=== PATIENT | female | born 1960 | race Caucasian/White ===

== ENCOUNTER → 2018-07-24 | Outpatient (CLI) | payer OTHER | LOC: FIMAGING 12:23 | PROVIDERS: ATTEND Nurse Practitioner | DX: M50.921 Unspecified cervical disc disorder at C4-C5 level (principal); M50.923 Unspecified cervical disc disorder at C6-C7 level ==

== ENCOUNTER 2018-09-11 05:44 | Inpatient (IN) | payer OTHER ==
[2018-09-11] MEDS ORDERED: ACETAMINOPHEN 500 MG TAB PO ONE (05:51)
[2018-09-11] MEDS ORDERED: GABAPENTIN 300 MG CAP PO ONE (05:51)
[2018-09-11] MEDS ORDERED: LR 1,000 ML IV ONE (06:05)
[2018-09-11] MEDS ORDERED: CHLORHEXIDINE GLUC HIBICLENS 118 ML BTL TP ONE (06:26)
[2018-09-11] MEDS ORDERED: THROMBIN (BOVINE) 5,000 UNIT VIAL TP ONE (06:26)
[2018-09-11] MEDS ORDERED: BUPIVACAINE 0.25% 30 ML SDV ONE (06:26)
[2018-09-11] MEDS ORDERED: EPINEPHrine 1 MG/ML INJ ONE (06:26)
[2018-09-11] MEDS ORDERED: BACITRACIN 50,000 UNITS/10 ML SYR IRR ONE (06:27)
--- NOTE | 2018-09-11 06:58 | PDANEPAE ---
ANE Past Medical History - Cardiovascular History Hx Hypertension: Yes Hx Arrhythmias: No Hx Chest Pain: No Hx Coronary Artery / Peripheral Vascular Disease: Yes Hx CHF / Valvular Disease: No Hx Palpitations: No Cardiovascular History Comment: htn. hyperlipidemia. hx of left CEA - Pulmonary History Hx COPD: No Hx Asthma/Reactive Airway Disease: No Hx Recent Upper Respiratory Infection: No Hx Oxygen in Use at Home: No Hx Sleep Apnea: No Sleep Apnea Screening Result - Last Documented: Positive Pulmonary History Comment: mukul positive uses cpap- instructed pt to bring - Neurologic History Hx Cerebrovascular Accident: No Hx Seizures: No Hx Dementia: No Neurologic History Comment: left arm has occassional numbness and tingling - Endocrine History Hx Diabetes: No - Renal History Hx Renal Disorders: No - Liver History Hx Hepatic Disorders: No - Neurological & Psychiatric Hx Hx Neurological and Psychiatric Disorders: No - Cancer History Hx Cancer: No - Congenital Disorder History Hx Congenital Disorders: No - GI History Hx Gastrointestinal Disorders: Yes Gastrointestinal History Comment: struggles with constipation a lot - Other Health History Other Health History: wears glasses. possible eczema to right arm- pt states it is clearing - Chronic Pain History Chronic Pain: Yes (left shoulder pain) - Surgical History Prior Surgeries: cardiac stent x1. hysterectomy at 33 yo. carpal tunnel. left CEA ANE Review of Systems Review of Systems: - Exercise capacity METS (RN): 4 METS ANE Patient History - Allergies Allergies/Adverse Reactions: cephalexin [From Keflex] Allergy (Verified 07/21/18 12:28) Anaphylaxis - Home Medications Home Medications: Aspirin 81mg (*) 07/21/18 [Last Taken 09/03/18] Lipitor 40 mg (*) 07/21/18 [Last Taken 09/10/18] Losartan/Hydrochlorothiazide 07/21/18 [Last Taken 09/11/18] Metoprolol Succinate 07/21/18 [Last Taken 09/10/18] Sertraline HCl 07/21/18 [Last Taken 09/11/18] Vitamin D3 07/21/18 [Last Taken 09/01/18] traZODONE 50MG (*) 07/21/18 [Last Taken 09/10/18] - NPO status NPO Since - Liquids (Date): 09/11/18 NPO Since - Liquids (Time): 05:15 NPO Since - Solids (Date): 10/28/18 NPO Since - Solids (Time): 19:30 - Smoking Hx Smoking Status: Never smoked - Family Anes Hx Family Hx Anesthesia Complications: none ANE Labs/Vital Signs - Vital Signs Blood Pressure: 149/56 Heart Rate: 53 Respiratory Rate: 16 O2 Sat (%): 94 Height: 157.48 cm Weight: 72.575 kg ANE Physical Exam - Airway Neck exam: decreased ROM Mallampati Score: Class 2 Mouth exam: small mouth opening - ASA Status ASA Status: III ANE Anesthesia Plan Anesthesia Plan: general endotracheal anesthesia
[2018-09-11] MEDS ORDERED: VANCOMYCIN HCL/NORMAL SALINE 250 ML IV ONE (07:00)
[2018-09-11] MEDS ORDERED: MIDAZOLAM 2 MG/2 ML VIAL ONE (07:09)
[2018-09-11] MEDS ORDERED: fentaNYL 100 MCG/2 ML INJ ONE ×2 (07:10→10:19)
[2018-09-11] MEDS ORDERED: PROPOFOL/EMULSION 500 MG/50 ML BOTTLE IV ONE ×2 (07:10→09:35)
[2018-09-11] MEDS ORDERED: PROPOFOL 200 MG/20 ML VIAL ONE (07:11)
--- NOTE | 2018-09-11 07:13 | PDGENHP ---
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 Since then she has had increasing symptoms which she describes as left scapular pain that extends down her arm creating numbness and heaviness. She has a history of cardiac disease with stent placement. She has done several week of PT which was not beneficial. She underwent 3 injections which were initially effective but unfortunately did not last. She cannot take NSAIDs due to her cardiac history. She is scheduled for ACDF C5-6, C6-[address] Saldivar on 09/11/18 at [facility]. She has obtained cardiac clearance from Dr Varghese. History Information - Allergies/Home Medication List Allergies/Adverse Reactions: cephalexin [From Keflex] Allergy (Verified 07/21/18 12:28) Anaphylaxis Home Medications: Aspirin 81mg (*) 07/21/18 [Last Taken 09/03/18] Lipitor 40 mg (*) 07/21/18 [Last Taken 09/10/18] Losartan/Hydrochlorothiazide 07/21/18 [Last Taken 09/11/18] Metoprolol Succinate 07/21/18 [Last Taken 09/10/18] Sertraline HCl 07/21/18 [Last Taken 09/11/18] Vitamin D3 07/21/18 [Last Taken 09/01/18] traZODONE 50MG (*) 07/21/18 [Last Taken 09/10/18] I have personally reviewed and updated: family history, medical history, social history, surgical history Past Medical History: Cardiac disease - Past Medical History coronary artery disease - Surgical History Reports: no pertinent surgical hx - Family History Additional family history: Not relavant to current situation - Social History Smoking Status: Never smoked Review of Systems Review of Systems: ROS: 10pt was reviewed & negative except for what was stated in HPI & below Physical Exam Physical Exam: 5/5 BUE 5/5 BLE Porras negative Reflexes: 2+ BR, biceps, triceps Temp Pulse Resp BP Pulse Ox 36.6 C 53 L 16 149/56 H 94 09/11/18 06:21 09/11/18 06:58 09/11/18 06:58 09/11/18 06:58 09/11/18 06:58 Constitutional: no apparent distress Eyes: PERRL Cardiovascular: regular rate and rhythym Respiratory: no respiratory distress Skin: warm, normal color Musculoskeletal: full muscle strength Neurologic: AAOx3, sensation intact bilaterally Assessment & Plan Assessment: 58 yr old F with cervical stenosis and left upper extremity radicular pain Plan: Jena exhausted conservative treatment options and elected to proceed with ACDF C5-6, C6-7. She stopped her ASA 8 days ago which was her decision. MRI cervical spine from June 2018 in [facility] shows C5-6 moderate sized osteophyte with a focal left central protrusion, moderate to severe stenosis. C6 -7 moderate to severe bilateral foraminal stenosis. Jena has a history of cardiac disease and has obtained clearance from her diorama model maker. Her diorama model maker does not approve her her stopping ASA prior to surgery. She understands that Dr Saldivar will not do spinal surgery while on ASA. She elected to stop her ASA and proceed with surgery. She understands that she needs to speak with her diorama model maker regarding her cardiac risk for doing this. We will admit her to Med surg following surgery.
[2018-09-11] MEDS ORDERED: MAGNESIUM HYDROXIDE 30 ML UDCUP PO PRN (07:32)
[2018-09-11] MEDS ORDERED: diphenhydrAMINE 25 MG CAP PO PRN (07:32)
[2018-09-11] MEDS ORDERED: ONDANSETRON DISINTEGRATING 4 MG TAB PO PRN (07:32)
[2018-09-11] MEDS ORDERED: ONDANSETRON 4 MG/2 ML VIAL IVP PRN (07:32)
[2018-09-11] MEDS ORDERED: LACTULOSE 20 GM/30 ML UDCUP PO PRN (07:32)
[2018-09-11] MEDS ORDERED: POLYETHYLENE GLYCOL 3350 17 GM PKT PO PRN (07:32)
[2018-09-11] MEDS ORDERED: BISACODYL 10 MG SUPP PR PRN (07:32)
[2018-09-11] MEDS ORDERED: ROCURONIUM 50 MG/5 ML VIAL ONE (07:36)
[2018-09-11] MEDS ORDERED: ONDANSETRON 4 MG/2 ML VIAL ONE (07:36)
[2018-09-11] MEDS ORDERED: METOCLOPRAMIDE 10 MG/2 ML VIAL ONE (07:36)
[2018-09-11] MEDS ORDERED: NS 1,000 ML IV SCH (07:45)
[2018-09-11] MEDS ORDERED: PROMETHAZINE HCL 25 MG/ML INJ IVP PRN (10:10)
[2018-09-11] MEDS ORDERED: NALOXONE HCL 0.4 MG/ML INJ IVP PRN (10:10)
[2018-09-11] MEDS ORDERED: DEXAMETHASONE 4 MG/ML VIAL IVP PRN (10:10)
[2018-09-11] MEDS ORDERED: LR 500 ML IV PRN (10:10)
--- NOTE | 2018-09-11 10:11 | POSTANESTH ---
Post Anesthetic Evaluation Cardiovascular Status: Similar to Pre-Op Cond Respiratory Status: Normal, Stable Level of Consciousness/Mental Status: Can Participate in Eval Pain Control: Adequate, Prn Tx Ordered Nausea/Vomiting Control: Adequate, Prn Tx Ordered Complications Possibly Related to Anesthesia: None Noted
[2018-09-11] MEDS: fentaNYL 100 MCG/2 ML INJ IVP PRN ×2 (10:20→10:25)
--- NOTE | 2018-09-11 10:27 | POSTOPPROG ---
Post Op Note Date of Operation: 09/11/18 Surgeon: Elena Saldivar Manager Military: Nancy Blount NP Anesthesiologist: Naveen Anesthesia: GET(General Endotracheal) Pre-op Diagnosis: Cervical stenosis Procedure: ACDF C5-6, C6-7 Inf/Abcess present in the surg proc area at time of surgery?: No Depth: Deep Incisional (Fascial) EBL: Minimal Total fluids administered: see anesthesia Complications: none Date of Surgery: 09/11/18 Post Op Day: 0 Assessment/Plan: Assessment: 58 yr old F s/p ACDF C5-6, C6-7 for LUE symptoms/pain Plan: -Admit Med surg -PT/OT/ST eval and treat -Collar on at all times -Pain management -Post op xrays in am -Advance diet as tolerated Please call neurosurgery with questions/concerns Subjective: waking up in PACU Objective: Waking up in PACU PERRL No facial droop CHANG x4 5/5 BUE, BLE Collar in place Dressing CDI Appropriate Neuro Check Frequency Ordered: Yes
[2018-09-11] MEDS ORDERED: HYDROmorphONE/DILAUDID 2 MG/ML INJ ONE (10:28)
[2018-09-11] MEDS: HYDROmorphONE/DILAUDID 2 MG/ML INJ IVP PRN ×2 (10:37→10:52)
--- NOTE | 2018-09-11 11:09 | GOP ---
DATE OF OPERATION: 09/11/2018 SURGEON: Karlie Saldivar MD NEUROSURGEON: Karlie Saldivar MD INSTRUCTIONAL DESIGN SPECIALIST: Nancy Blount, nurse practitioner PREOPERATIVE DIAGNOSIS: Cervical radiculopathy. POSTOPERATIVE DIAGNOSIS: Cervical radiculopathy. PROCEDURE PERFORMED: Anterior cervical diskectomy with fusion and decompression at C5-6, C6-7. Ante rior cervical instrumentation C5, C6, C7. Placement of biomechanical intervertebral device C5-6, C6- 7. Same incision bone graft harvest. Microscope ([id number], [id number], [id number], [id number] x2, [id number], [id number]). FINDINGS: Were consistent with diagnosis. SPECIMENS: None. ESTIMATED BLOOD LOSS: 25 cc. INDICATIONS: The patient is a middle-aged female with terrible pain radiating down the left arm. Radha valdes also had a history of cardiac stents and was on anti-platelet therapy for these. She failed conser vative measures and she wanted to have surgery to fix the pain radiating into the left arm. The risk s of esophageal injury, carotid injury, recurrent laryngeal nerve injury, major vascular injury, hoar seness, dysphagia, nerve injury in the neck, pseudoarthrosis, adjacent segment disease, the possible failure of the surgery to alleviate her symptoms, spinal fluid leak, and pseudoarthrosis were all dis cussed. She knew that she may require additional surgery in the future at adjacent segments, even af ter successful surgery at this level. She wanted to proceed despite all these risks. DESCRIPTION OF PROCEDURE: Patient was taken to the operating room, placed in supine position. Gener al anesthesia was begun. A midline shoulder roll was placed. Her neck was kept neutral. Her occipu t gently extended. Her neck was sterilely prepped and draped in usual fashion. I made a transverse incision on the right side of the neck. The subcutaneous tissue was dissected us ing Bovie cautery down to the platysma. We used a combination of sharp and blunt dissection medial t o the sternocleidomastoid and lateral to the strap muscles down to the prevertebral space. A localiz ing x-ray was taken. We dissected the longus colli muscles off the spine at C5-6, C6-7, placed a self-retaining retractor, removed the ventral osteophytes at C5-6, C6-7. We harvested these for autologous grafting purposes. We placed a distraction pin at C5-6, shot an x-ray confirmed the location, and then under the micro scope, completely removed the disk and the cartilaginous endplates at C5-6. We drilled and harvested subchondral bone for autologous grafting purposes, then opened the PLL and decompressed the thecal s ac and the neural foramen bilaterally. There was a soft disk fragment on the left side at C5-6, and we got a dry great decompression of the C6 nerve root. We then chose a 7 mm anatomic PTC cage and pa cked it with autologous harvested bone dust. We then inserted at C5-6 and a nice fit was obtained. We moved our pins to the C6-7 level, distracted at C6-7 and did likewise removing the disk and the ca rtilaginous endplates. We drilled and harvested subchondral bone for autologous grafting purposes. We opened the posterior and longitudinal ligament and under the microscope, decompressed the thecal s ac and the neural foramen bilaterally. In this case, the left neural foramen was very tight due to b oney osteophyte hypertrophy of the uncinate process and we decompressed the C7 nerve root very widely way out into the foramen just beyond the pedicle of C7. We got a great decompression. We then chos e a 7 mm x 14 x 11 mm anatomic PTC cage manufactured by [employer]. It was packed with bone autograft and inserted it at C6-7. A great fit was obtained. We removed our distraction pins. We placed Gelfoam bullets in the holes that remained. We then fini shed preparation of the ventral surface of the vertebral bodies for the plate. We took a 39 mm plate . We increased its lordosis. We placed a 13 mm screw at C5, 6 and 7 and shot an x-ray. It was in e xcellent position. We placed the 3 remaining screws. They too were in excellent position. We then locked all of the screws according to company specification and verified this with people in the room . We then achieved meticulous hemostasis and then placed about 5 cc of 0.25% Marcaine with epinephrine in the prevertebral space. We then closed the incision in multiple layers using Vicryl sutures. Diony ri-Strips were applied to skin. The patient was reversed from anesthesia, extubated, and transferred to recovery room in stable condition. There were no complications. COMPLICATIONS: None. INSTRUMENTATION USED: Sensorlytronic 39 mm Zevo plate with 3.5 x 13 mm screws. We used a 7 x 14 x 11 kyrie tomic PTC cage at 5-6, 6-7. /[id number]/MODL
--- NOTE | 2018-09-11 11:45 | PDMN ---
Medical Necessity Medical necessity: AUTH #[id number] VALID 09/11 - 09/12. DONE IN PT. MCG : S320 anterior fusion. C5/6,C6/7 discectomy with fusion and decompression , anterior instrumentation C5,C6,C7 placement of C5-6,C6-7.
[2018-09-11] MEDS: FAMOTIDINE 20 MG TAB PO SCH ×2 (12:06→21:38)
[2018-09-11] MEDS: oxyCODONE IR 5 MG TAB PO PRN ×3 (12:06→21:38)
[2018-09-11] MEDS: METHOCARBAMOL 750 MG TAB PO PRN ×2 (12:06→17:20)
[2018-09-11] MEDS: SENNOSIDES/DOCUSATE SODIUM TAB PO SCH ×2 (12:14→21:35)
[2018-09-11] MEDS: ACETAMINOPHEN 500 MG TAB PO SCH ×2 (15:18→21:38)
[2018-09-11] MEDS: GABAPENTIN 300 MG CAP PO SCH ×2 (15:19→21:35)
[2018-09-11] MEDS ORDERED: VANCOMYCIN 750 MG in D5W 150 ML IV ONE (18:30)
[2018-09-11] MEDS ORDERED: ATORVASTATIN CALCIUM 40 MG TAB PO SCH (21:00)
[2018-09-11] MEDS ORDERED: METOPROLOL SUCCINATE XR 50 MG TAB PO SCH (21:00)
[2018-09-12] MEDS: METHOCARBAMOL 750 MG TAB PO PRN ×2 (03:35→13:54)
[2018-09-12 04:55] LABS: PLATELET COUNT 137 10^3/uL (150-400)
[2018-09-12] MEDS ORDERED: PNEUMOCOCCAL 0.5ML VACCINE VIAL IM ONE (06:24)
[2018-09-12] MEDS: GABAPENTIN 300 MG CAP PO SCH ×2 (06:31→13:55)
[2018-09-12] MEDS: ACETAMINOPHEN 500 MG TAB PO SCH ×2 (06:31→13:54)
[2018-09-12] MEDS: oxyCODONE IR 5 MG TAB PO PRN ×2 (06:34→13:54)
--- NOTE | 2018-09-12 08:03 | NEUSURGPN ---
Assessment/Plan: Assessment: 58 yr old F s/p ACDF C5-6, C6-7 for LUE symptoms/pain, POD#1. Pre op pain improved. Plan: -PT/OT/ST eval and treat -Collar on at all times -Pain management -Post op xrays in am -Advance diet as tolerated -TEDs, SCDs, lovenox POD#3 -D/w Dr Saldivar -Dispo: possibly home later today if doing well Please call neurosurgery with questions/concerns Subjective: Pt resting in bed, c/o difficulty swallowing and anterior/posterior neck pain Objective: AAOx3 NAD VSS MAEx4 Motor 5/5 BUE C collar on Incision dressed cdi +LT Urinary Catheter in Place: No - Physician Discussed Patient with : Yariel Neurosurgery Physical Exam - Vitals, I&O, Labs I and O 09/11/18 09/12/18 09/13/18 05:59 05:59 05:59 Intake Total 2680 Output Total 25 Balance 2655 Weight 72.575 kg Intake: Oral (ml) 1480 IV Intake (ml) 1200 Output: Estimated Blood Loss (ml) 25 Other: Number of Voids Toilet 1 Vital Signs Temp Pulse Resp BP Pulse Ox 36.8 C 57 L 15 140/56 H 89 L 09/12/18 07:59 09/12/18 07:59 09/12/18 07:59 09/12/18 07:59 09/12/18 07:59 Laboratory Results 09/12/18 04:23 09/12/18 04:23 ICD10 Worksheet Patient Problems: Problems Problem Status Onset Cervical radicular pain Acute - ICD10 Problem Qualifiers (1) Cervical radicular pain
[2018-09-12] MEDS ORDERED: LOSARTAN/HCTZ 50/12.5 1 TAB PO SCH (09:00)
[2018-09-12] MEDS ORDERED: SERTRALINE HCL 100 MG TAB PO SCH (09:00)
[2018-09-12] MEDS: FAMOTIDINE 20 MG TAB PO SCH (09:52)
[2018-09-12] MEDS: SENNOSIDES/DOCUSATE SODIUM TAB PO SCH (09:53)
[2018-09-12 11:24] VITALS: BP 153/84
--- NOTE | 2018-09-12 13:45 | ASMTLACE ---
LACE Length of stay for Answers: 2 days current admission Acuity / Level of Answers: Yes Care: Did the patient have an inpatient admission? Comorbidities - select Answers: Coronary Artery Disease all that apply Opioid dependence / Chronic pain Other Notes: HTN; HLD # of Emergency department Answers: 0 visits in the last 6 months Score: 12 Date Signed: 09/12/2018 01:44 PM Electronically Signed By:PRITI Cash
--- NOTE | 2018-09-12 13:47 | ASMTCMCOM ---
CM Note CM Note Notes: Pt had planned surgery for cervical stenosis. Pt resides with significant other. OT/PT/LINEN ATTENDANT clear pt for home. Pt medically stable for dc/c, no CM d/c needs identified. Date Signed: 09/12/2018 01:47 PM Electronically Signed By:PRITI Cash
[2018-09-14] MEDS ORDERED: ENOXAPARIN 40 MG/0.4 ML SYR SC SCH (09:00)
== END 2018-09-12 14:30 | disposition home or self-care (01) | DRG 30 ==
LOC: F3N 05:44
PROVIDERS: ADMIT Neurological Surgery; ATTEND Neurological Surgery
DX: M54.12 Radiculopathy, cervical region (principal); M48.02 Spinal stenosis, cervical region; I25.10 Atherosclerotic heart disease of native coronary artery without angina pectoris; Z95.5 Presence of coronary angioplasty implant and graft
CPT/HCPCS: 92610-GN; 97116-GP; 97161-GP; 97166-GO; C1713; G0009; J0171; J1170; J2250; J2405; J2704; J2765; J3010; J3370

== ENCOUNTER 2018-09-15 16:22 | Inpatient (IN) | payer OTHER ==
--- NOTE | 2018-09-15 17:21 | EDPHY ---
H & P Stated Complaint: Cervical fusion 4 days ago c/o sore throat and increasing neck pain Time Seen by Provider: 09/15/18 17:21 HPI/ROS: CHIEF COMPLAINT: Neck swelling, pain swelling HISTORY OF PRESENT ILLNESS: The patient is a 58-year-old female who is 4 days out from anterior cervical fusion with Dr. Saldivar. She is wearing a cervical collar. She has had increased swelling and pain in her neck with difficulty swallowing. No difficulty breathing. She was seen in their office today by the physician business assistant who is concerned for hematoma and sent her here to the ER for an MRI. The this was several hours ago. No fevers. No vomiting. Severity: Moderate Modifying factors: None REVIEW OF SYSTEMS: Constitutional: denies: chills, fever, recent illness, recent injury EENTM: denies: blurred vision, double vision, nose congestion Respiratory: denies: cough, shortness of breath Cardiac: denies: chest pain, irregular heart rate, lightheadedness, palpitations Gastrointestinal/Abdominal: denies: abdominal pain, diarrhea, nausea, vomiting, blood streaked stools Genitourinary: denies: dysuria, frequency, hematuria, pain Musculoskeletal: denies: joint pain, muscle pain Skin: denies: lesions, rash, jaundice, bruising Neurological: denies: headache, numbness, paresthesia, tingling, dizziness, weakness Hematologic/Lymphatic: denies: blood clots, easy bleeding, easy bruising Immunologic/allergic: denies: HIV/AIDS, transplant 10 systems reviewed and negative except as noted EXAM: GENERAL: Well-appearing, well-nourished and in no acute distress. HEAD: Atraumatic, normocephalic. EYES: Pupils equal round and reactive to light, extraocular movements intact, sclera anicteric, conjunctiva are normal. ENT: TMs normal, nares patent, oropharynx clear without exudates. Moist mucous membranes. NECK: Cervical collar in place, mild swelling, firm, the no drooling. No difficulty breathing. LUNGS: Breath sounds clear to auscultation bilaterally and equal. No wheezes rales or rhonchi. HEART: Regular rate and rhythm without murmurs, rubs or gallops. ABDOMEN: Soft, nontender, normoactive bowel sounds. No guarding, no rebound. No masses appreciated. BACK: No CVA tenderness, no spinal tenderness, step-offs or deformities EXTREMITIES: Normal range of motion, no pitting or edema. No clubbing or cyanosis. NEUROLOGICAL: Cranial nerves II through XII grossly intact. Normal speech, normal gait. 5/5 strength, normal movement in all extremities, normal sensation , normal reflexes PSYCH: Normal mood, normal affect. SKIN: Warm, dry, normal turgor, no visible rashes or lesions. Source: Patient Exam Limitations: No limitations - Personal History Current Tetanus Diphtheria and Acellular Pertussis (TDAP): Unsure - Medical/Surgical History Hx Asthma: No Hx Chronic Respiratory Disease: No Hx Diabetes: No Hx Cardiac Disease: Yes Hx Renal Disease: No Hx Cirrhosis: No Hx Alcoholism: No Hx HIV/AIDS: No Hx Splenectomy or Spleen Trauma: No Other PMH: cardiac stent, left endarectomy, cervical fusion - Family History Significant Family History: No pertinent family hx - Social History Smoking Status: Never smoked Alcohol Use: Sober Drug Use: None Constitutional: Initial Vital Signs Temperature (C) 36.8 C 09/15/18 16:31 Heart Rate 68 09/15/18 16:31 Respiratory Rate 16 09/15/18 16:31 Blood Pressure 187/80 H 09/15/18 16:31 O2 Sat (%) 96 09/15/18 16:31 O2 Delivery Mode Room Air Allergies/Adverse Reactions: cephalexin [From Keflex] Allergy (Verified 07/21/18 12:28) Anaphylaxis Home Medications: Medication Instructions Recorded Atorvastatin Calcium [Lipitor 40 40 mg PO HS 07/21/18 mg (*)] Losartan/Hydrochlorothiazide 1 each PO DAILY 07/21/18 [Losartan-Hctz 100-25 mg Tab] Metoprolol Succinate Xr [Toprol Xl 50 mg PO HS 07/21/18 50 mg (*)] Sertraline HCl [Zoloft 100mg (*)] 100 mg PO DAILY 07/21/18 traZODone [traZODONE 50MG (*)] 50 mg PO HS 07/21/18 Methocarbamol [Robaxin 750 mg (*)] 750 mg PO QID PRN #60 tab 09/12/18 oxyCODONE IR [Oxycodone Ir (*)] 5 - 10 mg PO Q4HRS PRN #60 tab 09/12/18 Acetaminophen [Tylenol ES 500 mg 1,000 mg PO TID PRN 09/15/18 (*)] Medical Decision Making ED Course/Re-evaluation: 5:[address] Gerard and is here and is evaluating the patient. 5:[address] Gerard is planning to take to the OR without the imaging. Differential Diagnosis: Partial list of the Differential diagnosis considered include but were not limited to; hematoma, infection and although unlikely based on the history and physical exam, I also considered perforation, ischemia. - Data Points Medications Given: Diphenhydramine HCl (Benadryl Injection) 50 mg IVP Q6 PRN PRN Reason: ALLERGIC REACTION Stop: 03/15/19 14:31 Last Admin: 09/16/18 14:41 Dose: 50 mg Famotidine (Pepcid) 20 mg PO BID INNA Stop: 03/15/19 08:59 Last Admin: 09/16/18 09:35 Dose: 20 mg HCTZ/Losartan Potassium (Hyzaar 50/12.5) 2 tab PO DAILY INNA Stop: 03/15/19 09:29 Last Admin: 09/16/18 09:36 Dose: 2 tab Hydralazine HCl (Apresoline) 10 - 20 mg IVP Q4 PRN PRN Reason: SBP >160 Stop: 03/15/19 12:23 Last Admin: 09/16/18 12:38 Dose: 10 mg Sodium Chloride (Ns) 1,000 mls @ 75 mls/hr IV CONT INNA Stop: 03/14/19 19:14 Last Admin: 09/16/18 01:10 Dose: 1,000 mls Methocarbamol (Robaxin) 750 mg PO QID PRN PRN Reason: Spasms Stop: 03/14/19 23:15 Last Admin: 09/16/18 00:18 Dose: 750 mg Morphine Sulfate (Morphine) 1 - 2 mg IVP Q1HR PRN PRN Reason: Pain, Severe Unable to Take PO Stop: 09/25/18 19:00 Last Admin: 09/15/18 19:32 Dose: 2 mg Ondansetron HCl (Zofran) 4 mg IVP Q4HRS PRN PRN Reason: Nausea/Vomiting, Can't Take PO Stop: 03/14/19 19:00 Last Admin: 09/15/18 19:32 Dose: 4 mg Oxycodone HCl (Oxycodone Ir) 5 - 10 mg PO Q3HRS PRN PRN Reason: Pain, Severe Able to Take PO Stop: 09/25/18 19:00 Last Admin: 09/16/18 09:35 Dose: 10 mg Sertraline HCl (Zoloft) 100 mg PO DAILY INNA Stop: 03/15/19 10:29 Last Admin: 09/16/18 11:33 Dose: 100 mg Discontinued Medications Bacitracin (Bacitracin Syringe) Confirm Administered Dose 100,000 units IRR .STK -MED ONE Stop: 09/15/18 21:50 Last Admin: 09/15/18 23:00 Dose: 100,000 units Bupivacaine HCl (Sensorcaine 0.25% Sdv) Confirm Administered Dose 30 ml .ROUTE .STK-MED ONE Stop: 09/15/18 21:44 Last Admin: 09/15/18 23:00 Dose: 30 ml Chlorhexidine Gluconate (Hibiclens) Confirm Administered Dose 1 btl TP .STK-MED ONE Stop: 09/15/18 21:43 Last Admin: 09/16/18 01:03 Dose: Not Given Dexamethasone (Decadron Injection) 10 mg IVP EDNOW ONE Stop: 09/15/18 17:40 Last Admin: 09/15/18 17:55 Dose: 10 mg Epinephrine HCl (Epinephrine) Confirm Administered Dose 1 mg .ROUTE .STK-MED ONE Stop: 09/15/18 21:44 Last Admin: 09/15/18 23:02 Dose: 0.15 mg Lactated Ringer's (Lr) 1,000 mls @ 0 mls/hr IV ONCE ONE PRN Reason: KVO Stop: 09/15/18 21:36 Last Admin: 09/16/18 01:03 Dose: Not Given Clindamycin Phosphate/Dextrose (Cleocin 900 Mg (Premix)) 50 mls @ 100 mls/hr IV ONCE ONE Stop: 09/15/18 22:44 Last Admin: 09/15/18 22:03 Dose: 50 mls Clindamycin Phosphate/Dextrose (Cleocin 600 Mg (Premix)) 50 mls @ 100 mls/hr IV Q8HRS INNA PRN Reason: Protocol Stop: 09/16/18 14:29 Last Admin: 09/16/18 06:08 Dose: 50 mls Midazolam HCl (Versed) 2 mg IVP ONCALL ONE Stop: 09/15/18 22:24 Last Admin: 09/15/18 22:20 Dose: 2 mg Thrombin (Thrombin-Jmi) Confirm Administered Dose 5,000 unit TP .STK-MED ONE Stop: 09/15/18 21:44 Last Admin: 09/15/18 23:03 Dose: 5,000 unit Departure - Departure Disposition: To OP Cath/Surgery Clinical Impression: Postoperative hematoma neck Condition: Fair
[2018-09-15] MEDS ORDERED: DEXAMETHASONE 10 MG/ML VIAL IVP ONE (17:39)
[2018-09-15] MEDS ORDERED: DEXAMETHASONE 4 MG/ML VIAL ONE ×2 (17:52→22:12)
[2018-09-15 18:00] LABS: PLATELET COUNT 232 10^3/uL (150-400)
[2018-09-15 18:09] LABS: INR 1.03 (0.83-1.16); PROTIME(PATIENT) 13.7 SEC (12.0-15.0)
[2018-09-15] MEDS ORDERED: HYDROCODONE/APAP 5/325 TAB PO PRN ×2 (19:01→22:50)
[2018-09-15] MEDS ORDERED: ONDANSETRON DISINTEGRATING 4 MG TAB PO PRN (19:01)
[2018-09-15] MEDS ORDERED: ACETAMINOPHEN 325 MG TAB PO PRN (19:01)
[2018-09-15] MEDS ORDERED: ONDANSETRON 4 MG/2 ML VIAL IVP PRN ×2 (19:01→22:50)
[2018-09-15] MEDS ORDERED: NS 1,000 ML IV SCH (19:15)
[2018-09-15] MEDS ORDERED: LR 1,000 ML IV ONE (21:35)
[2018-09-15] MEDS ORDERED: CHLORHEXIDINE GLUC HIBICLENS 118 ML BTL TP ONE (21:42)
[2018-09-15] MEDS ORDERED: EPINEPHrine 1 MG/ML INJ ONE (21:43)
[2018-09-15] MEDS ORDERED: THROMBIN (BOVINE) 5,000 UNIT VIAL TP ONE (21:43)
[2018-09-15] MEDS ORDERED: BUPIVACAINE 0.25% 30 ML SDV ONE (21:43)
[2018-09-15] MEDS ORDERED: BACITRACIN 50,000 UNITS/10 ML SYR IRR ONE (21:49)
[2018-09-15] MEDS ORDERED: CLINDAMYCIN 600 MG/DEXTROSE 50 ML IV ONE (21:51)
[2018-09-15] MEDS ORDERED: CLINDAMYCIN 900 MG/DEXTROSE/50 ML BAG IV ONE (22:00)
[2018-09-15] MEDS ORDERED: ROCURONIUM 50 MG/5 ML VIAL ONE (22:11)
[2018-09-15] MEDS ORDERED: LIDOCAINE 2% 2 ML INJ ONE ×2 (22:12)
[2018-09-15] MEDS ORDERED: ONDANSETRON 4 MG/2 ML VIAL ONE (22:12)
[2018-09-15] MEDS ORDERED: SUCCINYLCHOLINE CHLORIDE 200 MG/10 ML SYR IVP ONE (22:12)
[2018-09-15] MEDS ORDERED: PROPOFOL 200 MG/20 ML VIAL ONE (22:12)
[2018-09-15] MEDS ORDERED: SUGAMMADEX SODIUM 200 MG/2 ML VIAL IVP ONE (22:12)
[2018-09-15] MEDS ORDERED: fentaNYL 100 MCG/2 ML INJ ONE ×2 (22:12)
[2018-09-15] MEDS ORDERED: CLINDAMYCIN 900 MG/DEXTROSE 50 ML IV ONE (22:15)
[2018-09-15] MEDS ORDERED: MIDAZOLAM 2 MG/2 ML VIAL ONE (22:19)
[2018-09-15] MEDS ORDERED: MIDAZOLAM 2 MG/2 ML VIAL IVP ONE (22:23)
--- NOTE | 2018-09-15 22:24 | PDANEPAE ---
ANE History of Present Illness s/p ACDF POD 4 with neck hematoma ANE Past Medical History - Cardiovascular History Hx Hypertension: Yes Hx Arrhythmias: No Hx Chest Pain: No Hx Coronary Artery / Peripheral Vascular Disease: Yes Hx CHF / Valvular Disease: No Hx Palpitations: No Cardiovascular History Comment: htn. hyperlipidemia. hx of left CEA - Pulmonary History Hx COPD: No Hx Asthma/Reactive Airway Disease: No Hx Recent Upper Respiratory Infection: No Hx Oxygen in Use at Home: No Hx Sleep Apnea: No Pulmonary History Comment: mukul positive uses cpap- instructed pt to bring - Neurologic History Hx Cerebrovascular Accident: No Hx Seizures: No Hx Dementia: No Neurologic History Comment: left arm has occassional numbness and tingling - Endocrine History Hx Diabetes: No - Renal History Hx Renal Disorders: No - Liver History Hx Hepatic Disorders: No - Neurological & Psychiatric Hx Hx Neurological and Psychiatric Disorders: No - Cancer History Hx Cancer: No - Congenital Disorder History Hx Congenital Disorders: No - GI History Hx Gastrointestinal Disorders: Yes Gastrointestinal History Comment: struggles with constipation a lot - Other Health History Other Health History: wears glasses. possible eczema to right arm- pt states it is clearing - Chronic Pain History Chronic Pain: Yes (left shoulder pain) - Surgical History Prior Surgeries: cardiac stent x1. hysterectomy at 33 yo. carpal tunnel. left CEA ANE Review of Systems Review of Systems: - Exercise capacity Exercise capacity: >=4 METS ANE Patient History - Allergies Allergies/Adverse Reactions: cephalexin [From Keflex] Allergy (Verified 07/21/18 12:28) Anaphylaxis - Home Medications Home Medications: Atorvastatin Calcium [Lipitor 40 mg (*)] 40 mg PO HS 07/21/18 [Last Taken ] Losartan/Hydrochlorothiazide [Losartan-Hctz 100-25 mg Tab] 1 each PO DAILY 07/21 [Last Taken 09/14/18] Metoprolol Succinate Xr [Toprol Xl 50 mg (*)] 50 mg PO HS 07/21/18 [Last Taken 09/14/18] Sertraline HCl [Zoloft 100mg (*)] 100 mg PO DAILY 07/21/18 [Last Taken 09/14/18] traZODone [traZODONE 50MG (*)] 50 mg PO HS 07/21/18 [Last Taken 09/14/18] Acetaminophen [Tylenol ES 500 mg (*)] 1,000 mg PO TID PRN 09/15/18 [Last Taken 09/15/18] - NPO status NPO Since - Liquids (Date): 09/15/18 NPO Since - Liquids (Time): 11:00 NPO Since - Solids (Date): 09/15/18 NPO Since - Solids (Time): 11:00 - Smoking Hx Smoking Status: Never smoked - Alcohol Use Alcohol Use: Sober - Family Anes Hx Family Hx Anesthesia Complications: none ANE Labs/Vital Signs - Labs Result Diagrams: 09/15/18 17:45 09/15/18 17:45 - Vital Signs Blood Pressure: 183/108 Heart Rate: 74 Respiratory Rate: 16 O2 Sat (%): 95 Height: 157.48 cm Weight: 72.575 kg ANE Physical Exam - Airway Neck exam: spinal fusion, C-collar in place Mallampati Score: Class 2 Mouth exam: normal dental/mouth exam - Pulmonary Pulmonary: no respiratory distress - Cardiovascular Cardiovascular: regular rate and rhythym - ASA Status ASA Status: III ANE Anesthesia Plan Anesthesia Plan: general endotracheal anesthesia Specialized Airway: video laryngoscope
[2018-09-15] MEDS ORDERED: ACETAMINOPHEN 500 MG TAB PO PRN (22:50)
[2018-09-15] MEDS ORDERED: PROMETHAZINE HCL 25 MG/ML INJ IVP PRN (22:50)
[2018-09-15] MEDS ORDERED: oxyCODONE IR 5 MG TAB PO PRN (22:50)
[2018-09-15] MEDS ORDERED: NALOXONE HCL 0.4 MG/ML INJ IVP PRN (22:50)
[2018-09-15] MEDS ORDERED: fentaNYL 100 MCG/2 ML INJ IVP PRN (22:50)
[2018-09-15] MEDS ORDERED: ALBUTEROL 3 ML DEYVIAL IH PRN (22:50)
[2018-09-15] MEDS ORDERED: LR 500 ML IV PRN (22:50)
[2018-09-15] MEDS ORDERED: HYDROmorphONE/DILAUDID 2 MG/ML INJ IVP PRN (22:50)
--- NOTE | 2018-09-15 22:50 | POSTANESTH ---
Post Anesthetic Evaluation Cardiovascular Status: Normal, Stable Respiratory Status: Normal, Stable Level of Consciousness/Mental Status: Can Participate in Eval, Alert and Oriented Pain Control: Adequate, Prn Tx Ordered Nausea/Vomiting Control: Adequate, Prn Tx Ordered Complications Possibly Related to Anesthesia: None Noted
[2018-09-15] MEDS ORDERED: BISACODYL 10 MG SUPP PR PRN (23:16)
[2018-09-15] MEDS ORDERED: MAGNESIUM HYDROXIDE 30 ML UDCUP PO PRN (23:16)
[2018-09-15] MEDS ORDERED: POLYETHYLENE GLYCOL 3350 17 GM PKT PO PRN (23:16)
[2018-09-15] MEDS ORDERED: LACTULOSE 20 GM/30 ML UDCUP PO PRN (23:16)
--- NOTE | 2018-09-15 23:20 | SOAPPROG ---
SOAP Progress Note Assessment/Plan: Assessment: 58 yo F sp washout of post op hematoma Plan: stable to 3N PAKO x 1 hardcollar at all times please call with neuro changes 09/15/18 23:18 Subjective: + neck pain, no arm pain Objective: Vital Signs Temp Pulse Resp BP Pulse Ox 36.2 C 74 16 183/108 H 95 09/15/18 23:10 09/15/18 23:10 09/15/18 23:10 09/15/18 23:10 09/15/18 23:10 Laboratory Results 09/15/18 17:45 09/15/18 17:45 PT 13.7 SEC (12.0-15.0) 09/15/18 17:45 INR 1.03 (0.83-1.16) 09/15/18 17:45 somnolent PERRL, no facial droop MIKAELA x 4 + light touch ICD10 Worksheet Patient Problems: Problems Problem Status Onset Cervical radicular pain Acute
[2018-09-16] MEDS ORDERED: METHOCARBAMOL 750 MG TAB ONE (00:15)
[2018-09-16] MEDS: METHOCARBAMOL 750 MG TAB PO PRN (00:18)
[2018-09-16] MEDS: oxyCODONE IR 5 MG TAB PO PRN ×4 (01:10→18:36)
[2018-09-16 05:14] LABS: PLATELET COUNT 230 10^3/uL (150-400)
[2018-09-16] MEDS: CLINDAMYCIN 600 MG/DEXTROSE 50 ML IV SCH ×2 (06:08→15:33)
--- NOTE | 2018-09-16 08:48 | SOAPPROG ---
SOAP Progress Note Assessment/Plan: Assessment: 58 yo F POD #1 washout of post op hematoma after C5-7 ACDF Plan: Neuro: stable and doing well overall PT/OT tolerating regular diet PAKO x 1 hardcollar at all times please call with neuro changes 09/15/18 23:18 09/16/18 08:46 Subjective: neck swelling better, no arm pain, no weakness. swallowing better Objective: Vital Signs Temp Pulse Resp BP Pulse Ox 36.6 C 82 16 179/88 H 93 09/16/18 07:51 09/16/18 07:51 09/16/18 07:51 09/16/18 07:51 09/16/18 07:51 Laboratory Results 09/16/18 04:17 09/16/18 04:17 09/15/18 09/16/18 09/17/18 05:59 05:59 04:59 Intake Total 850 Output Total 310 Balance 540 PT 13.7 SEC (12.0-15.0) 09/15/18 17:45 INR 1.03 (0.83-1.16) 09/15/18 17:45 AAOX4, +FC PERRL, EOMI, no facial droop 5/5 + light touch C/D/I ICD10 Worksheet Patient Problems: Problems Problem Status Onset Cervical radicular pain Acute
--- NOTE | 2018-09-16 09:19 | GOP ---
DATE OF OPERATION: 09/15/2018 SURGEON: Hao Ardon MD NEUROSURGEON: Hao Ardon MD. FIELD APPRAISER: OSMAN Beasley. ANESTHESIA: General endotracheal and local. PREOPERATIVE DIAGNOSIS: 1. Postoperative cervical hematoma. 2. Dysphagia. POSTOPERATIVE DIAGNOSIS: 1. Postoperative cervical hematoma. 2. Dysphagia. PROCEDURE PERFORMED: Exploration of cervical wound and evacuation of subfascial hematoma. FINDINGS: SPECIMENS: None. ESTIMATED BLOOD LOSS: Less than 10 mL. INDICATIONS: The patient is a 58-year-old woman who underwent a C5-6 and C6-[address] Saldivar 4 days ago. She had an unremarkable postoperative course and was discharged home on postopera tive day number 1. She returned to the [facility] emergency department today with in creased difficulty swallowing, some feelings of shortness of breath, and increased fullness in her ne ck. Her neurological exam was unchanged from her discharge status. Her neck did appear swollen on o bservation. There were no outward signs of erythema, bruising, or drainage. No new imaging was perf ormed as it appeared most consistent with a postoperative hematoma. After discussion with the patien t, she was agreeable to returning to the operating room for evacuation of this hematoma. DESCRIPTION OF PROCEDURE: Prior to surgery, all the details including indications, risks, benefits, and alternatives, and expected recuperation were discussed with the patient. Appropriate consent for ms were signed. The operative site was marked. She was brought to the operating room where general anesthesia was induced, and she was intubated without complication. All necessary lines were establi shed. She was placed in supine position on the operating room table with her head on a cerebellar he ad rest in some extension. All pressure points were appropriately padded. A timeout was done per pr otocol. She was prepped and draped in the usual sterile fashion. Approximately 10 mL of 0.25% Yves ine with epinephrine was instilled around the prior incision for local anesthesia and vasoconstrictio n. Hemostat and scissors were used to open the prior incision and cut the sutures in the subcutaneous la mati as well as the platysma fascia. There was notably subacute appearing hematoma in both the superf icial space as well as the subfascial space. This was evacuated easily with irrigation and aspiratio n. After thoroughly flushing the incision, there were no significant areas of bleeding; however, the bipolar cautery device was used to obtain meticulous hemostasis of the longus colli muscles and the sternocleidomastoid muscle. Incidentally, the hardware was visualized and appeared intact and was no t disturbed. After thorough irrigation, attention was turned to closure. A 10-Bengali round silicone Miles-Andres drain was placed to the subfascial space and brought out through a separate stab incision at the low er right aspect of the wound. The platysma fascia was then closed with interrupted 2-0 Vicryl suture s, and the skin was closed with a running subcuticular 4-0 Monocryl suture. A Vicryl suture was used to anchor the drain to the skin. Sterile dressings including Steri-Strips, gauze, and Tegaderm were then applied over the incision. The drapes were then removed, and care was returned to Anesthesia t o evaluate for extubation. All counts were correct x2 at the end of the case. DRAINS: Subfascial 10-Bengali round silicone Miles-Andres drain. COMPLICATIONS: None apparent. DISPOSITION: It is expected that the patient will be extubated in the operating room and then taken to the postanesthesia care unit for further recovery. /[id number]/MODL
[2018-09-16] MEDS: FAMOTIDINE 20 MG TAB PO SCH ×2 (09:35→19:43)
[2018-09-16] MEDS: LOSARTAN/HCTZ 50/12.5 1 TAB PO SCH (09:36)
--- NOTE | 2018-09-16 10:30 | ASMTCMCOM ---
CM Note CM Note Notes: Patient admitted for sore throat/neck pain following an ACDF w Dr Saldivar on 09/11. She was found to have a post-op hematoma and is POD #1 washout. She lives with her and is normally independent. PT is recommending home with family support. Case Management available if this changes. Date Signed: 09/16/2018 10:29 AM Electronically Signed By:Maddie Hancock RN
[2018-09-16] MEDS: SERTRALINE HCL 100 MG TAB PO SCH (11:33)
[2018-09-16] MEDS ORDERED: hydrALAZINE 20 MG/ML VIAL IVP PRN (12:24)
[2018-09-16 15:11] LABS: CREATINE KINASE 59 IU/L (0-156)
[2018-09-16] MEDS: DIAZEPAM 5 MG TAB PO PRN (18:36)
[2018-09-16] MEDS: ATORVASTATIN CALCIUM 40 MG TAB PO SCH (19:43)
[2018-09-16] MEDS: METOPROLOL SUCCINATE XR 50 MG TAB PO SCH (19:43)
[2018-09-16] MEDS: traZODone 50 MG TAB PO SCH (19:44)
--- NOTE | 2018-09-16 20:29 | PDMN ---
Medical Necessity Medical necessity: MCG: GRG musculoskeletal sgy- pt presents with increased difficulty swallowing, SOB,neck swelling/pain. CT shows neck hematoma S/P ACDF req I/D and IV abx, PAKO drain, anticipate > 2 MN ongoing med nec care, tx and monitoring
[2018-09-17] MEDS: oxyCODONE IR 5 MG TAB PO PRN ×4 (05:41→20:53)
[2018-09-17] MEDS: DIAZEPAM 5 MG TAB PO PRN (05:41)
--- NOTE | 2018-09-17 06:36 | SOAPPROG ---
SOAP Progress Note Assessment/Plan: Assessment: 58 yo F POD #2 washout of post op hematoma after C5-7 ACDF Plan: Neuro: stable and doing well overall HTN: on po home meds but BP is still high, will have Hospitalists help with medical issues PT/OT tolerating regular diet PAKO x 1 hardcollar at all times discharge when pain controlled and hypertension stable please call with neuro changes 09/15/18 23:18 09/16/18 08:46 09/17/18 06:35 Subjective: neck pain improving, still with dysphagia, no arm pain, no weakness. Objective: Vital Signs Temp Pulse Resp BP Pulse Ox 36.7 C 73 18 162/53 H 92 09/17/18 05:15 09/17/18 05:15 09/17/18 05:15 09/17/18 06:21 09/17/18 05:15 Laboratory Results 09/16/18 04:17 09/16/18 04:17 09/16/18 09/17/18 09/18/18 06:59 05:59 05:59 Intake Total Output Total Balance PT 13.7 SEC (12.0-15.0) 09/15/18 17:45 INR 1.03 (0.83-1.16) 09/15/18 17:45 AAOx4, +FC PERRL, EOMI, no facial drop 5/5 + light touch C/D/I ICD10 Worksheet Patient Problems: Problems Problem Status Onset Cervical radicular pain Acute
[2018-09-17] MEDS: FAMOTIDINE 20 MG TAB PO SCH ×2 (09:45→20:53)
[2018-09-17] MEDS: SERTRALINE HCL 100 MG TAB PO SCH (09:45)
[2018-09-17] MEDS: LOSARTAN/HCTZ 50/12.5 1 TAB PO SCH (09:45)
--- NOTE | 2018-09-17 14:58 | CPEKG ---
Test Reason : OPEN Blood Pressure : / mmHG Vent. Rate : 083 BPM Atrial Rate : 084 BPM P-R Int : 137 ms QRS Dur : 074 ms QT Int : 381 ms P-R-T Axes : 047 026 001 degrees QTc Int : 448 ms Sinus rhythm Minimal ST depression, inferior leads Confirmed by Bernard Olguin ([id number]) on 09/17/2018 2:57:30 PM Referred By: Confirmed By:Bernard Olguin
--- NOTE | 2018-09-17 15:56 | GCON ---
REFERRING PHYSICIAN: Hao Ardon MD REASON FOR CONSULTATION: Medical management of hypertension. HISTORY OF PRESENT ILLNESS: The patient is a 58-year-old woman with a history of coronary artery disease, hypertension and hyperlipidemia, who underwent a C5- 6 and C6-7 ACDF procedure on September 13. Initially, she did very well with surgery and was discharged home Tuesday. She says that by Tuesday morning, she started feeling poorly. She was having increased neck pain and increased swelling around the neck area. The C-collar was becoming more uncomfortable. She was having more difficulty with swallowing. She came back to the emergency room and it was noted that she had a cervical hematoma. She had surgery on September 15 for exploration of cervical wound and evacuation of the hematoma. Since then, she is feeling markedly better. The hospitalist team is being asked to evaluate her for ongoing hypertension. She did receive hydralazine last evening to help with this. This caused her to get very flushed, had associated tachycardia and she said she became extremely red. This will be discontinued from her profile. During my interview, her blood pressure is slightly elevated, but not as high as it has been. She has no chest pain. No shortness of breath. Overall, she is feeling quite well. PAST MEDICAL HISTORY: 1. Coronary artery disease. 2. Hypertension. 3. Hyperlipidemia. 4. Bilateral carotid disease. PAST SURGICAL HISTORY: 1. Carotid endarterectomy in October 2009. 2. Hysterectomy. SOCIAL HISTORY: She does not smoke. She does not drink. She is currently in a relationship. She has 1 son. 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. FAMILY HISTORY: Her mother is ; she in a motor vehicle accident at age 41. Her father is age 89. He is an alcoholic. ALLERGIES: Keflex. HOME MEDICATIONS: Trazodone 50 mg p.o. at bedtime, Oxy IR 5 to 10 mg q.4 hours p.r.n., sertraline, Zoloft 100 mg daily, Toprol-XL 50 mg at bedtime, Robaxin 700 mg p.o. four times daily p.r.n., Lorcet/hydrochlorothiazide 100/25 mg 1 tab daily, Lipitor 40 mg p.o. at bedtime and Tylenol 1000 mg p.o. t.i.d. REVIEW OF SYSTEMS: A 10-point review of system was performed and was negative other than pertinent positives in the HPI and past medical history physical. EXAM: GENERAL: The patient is a 58-year-old female who appears to be in fairly good health. VITAL SIGNS: Blood pressure is 145/53, heart rate is 70, respiratory rate of 16. O2 sat on room air 93%, temperature 36.9 Celsius. EYES : Pupils are equal and reactive. EOMs are intact. ENT: Normal ears, hearing intact. NECK: She has a hard collar in place. Oral airway is moist. CARDIOVASCULAR: She is in a regular rate and rhythm. No murmurs, rubs or gallops noted. CHEST/LUNGS: Normal respiratory effort without wheezing, rales or rhonchi. ABDOMEN: Soft and nontender. SKIN: No rashes or ulcer noted. MUSCULOSKELETAL: She is moving her upper and lower extremities without difficulty. PSYCHIATRIC: She is alert and oriented. Normal mood and affect. Normal judgment, insight and normal memory. DATA REVIEWED: A CBC shows a white blood cell count of 6.87, hemoglobin 13.2, hematocrit at 37.9, platelet count of 230. Coags: Protime is 13.7, INR 1.03, PTT 30.9. Chemistry: Sodium is 139, potassium 4.3, chloride of 103, CO2 of 24 , BUN 14, creatinine 0.7, glucose is 159. CK is 59, CK-MB fraction is 1.26, troponin is less than 0.012. ASSESSMENT/PLAN: 1. Hypertension. Her blood pressure is already improved today. She attributes it from being in pain and increased stress. Will start her on a low dose of Norvasc. This dose can be titrated up if needed. 2. Coronary artery disease. She is on a beta-kole, aspirin and statin therapy. Continue this. 3. Hyperlipidemia, on a statin. 4. Hyperglycemia. Will check an A1c. Her glucose has been elevated in her most recent labs. 5. Status post anterior cervical diskectomy and fusion. Further followup with Neurosurgery. She is doing quite well. Her symptoms of numbness have since resolved. 6. Deep venous thrombosis prophylaxis. Would recommend low-molecular weight heparin if she stays. Thank you for this consultation. The hospitalist team will continue to follow this delightful patient during her stay. /[id number]/MODL MTDD
[2018-09-17] MEDS: ATORVASTATIN CALCIUM 40 MG TAB PO SCH (20:53)
[2018-09-17] MEDS: traZODone 50 MG TAB PO SCH (20:53)
[2018-09-17] MEDS: METOPROLOL SUCCINATE XR 50 MG TAB PO SCH (20:54)
[2018-09-18] MEDS: oxyCODONE IR 5 MG TAB PO PRN (06:19)
--- NOTE | 2018-09-18 07:30 | NEUSURGPN ---
Date of Surgery: 09/15/18 Post Op Day: 3 Assessment/Plan: Assessment: 58 yr old F s/p ACDF C5-6, C6-7 on 09/11, and s/p I&D cervical for hematoma evacuation POD# 3 Plan: -Remove PAKO -Ok to discharge home today -Patient seen by Dr Saldivar as well -hard collar at all times Please call with questions/concerns Subjective: Doing well, denies any issues Objective: AxO x3 MAEx4 5/5 BUE, BLE Incision CDI, no swelling. Steri strips in place PAKO patent Neuro Check Frequency: per routine Urinary Catheter in Place: No - Physician Discussed Patient with : Yar[facility] Neurosurgery Physical Exam - Vitals, I&O, Labs I and O 09/17/18 09/18/18 09/19/18 05:59 05:59 05:59 Intake Total 1250 Output Total Balance 1250 Intake: Oral (ml) 1250 IV Infused (ml) Clindamycin 600 mg/ Dextrose 50 ml @ 100 mls/ hr IV Q8HRS [facility] Rx#: [id number] Ns 1,000 ml @ 75 mls/hr IV CONT [facility] Rx#: [id number] Output: Urine (ml) Bedside Commode Toilet PAKO Drain Output (ml) Anterior Neck Other: Intake Quantity Yes Sufficient Number of Voids Bedside Commode Toilet 2 Vital Signs Temp Pulse Resp BP Pulse Ox 36.8 C 59 L 16 126/63 H 94 09/18/18 04:00 09/18/18 04:00 09/18/18 04:00 09/18/18 04:00 09/18/18 04:00 Laboratory Results 09/16/18 04:17 09/16/18 04:17 ICD10 Worksheet Patient Problems: Problems Problem Status Onset Cervical radicular pain Acute
--- NOTE | 2018-09-18 08:37 | HOSPPROG ---
Hospitalist Progress Note Assessment/Plan: impression: 1. hypertension, essential with recent elevation d/t pain from surgery 2. CAD, stable with no chest pain 3. hyperglycemia with normal A1C recs: 1. continue home regimen for hypertension: - toprol XL 50mg HS - losartan/hctz 100/25mg daily 2. do not continue amlodipine as outpatient Subjective: doing well; no CP or SOB Objective: Vital Signs Temp Pulse Resp BP Pulse Ox 36.8 C 62 15 126/63 H 94 09/18/18 07:53 09/18/18 07:53 09/18/18 07:53 09/18/18 07:53 09/18/18 07:53 Laboratory Results 09/16/18 04:17 09/16/18 04:17 09/17/18 09/18/18 09/19/18 05:59 05:59 05:59 Intake Total 1250 Output Total Balance 1250 PT 13.7 SEC (12.0-15.0) 09/15/18 17:45 INR 1.03 (0.83-1.16) 09/15/18 17:45 - Physical Exam Constitutional: no apparent distress, appears nourished Ears, Nose, Mouth, Throat: other (R sided anterior neck PAKO drain) Cardiovascular: regular rate and rhythym, no murmur, rub, or gallop Respiratory: no respiratory distress Gastrointestinal: No distension Genitourinary: No garcia in urethra Skin: warm Musculoskeletal: full muscle strength Neurologic: AAOx3 Psychiatric: not anxious ICD10 Worksheet Patient Problems: Problems Problem Status Onset Cervical radicular pain Acute
[2018-09-18] MEDS: LOSARTAN/HCTZ 50/12.5 1 TAB PO SCH (08:51)
[2018-09-18] MEDS: SERTRALINE HCL 100 MG TAB PO SCH (08:51)
[2018-09-18] MEDS: FAMOTIDINE 20 MG TAB PO SCH (08:51)
[2018-09-18] MEDS: METHOCARBAMOL 750 MG TAB PO PRN (08:54)
[2018-09-18 08:55] VITALS: BP 152/50
--- NOTE | 2018-09-18 11:30 | ASDISCHSUM ---
Discharge Information Plan Status:Home with No Needs Medically Cleared to Leave:09/17/2018 Discharge Date:09/18/2018 10:35 AM CM D/C Disposition:Home, Routine, Self-Care ADT D/C Disposition:Home, Routine, Self-Care Projected Discharge Date:09/18/2018 10:35 AM Transportation at D/C:Family Discharge Delay Reason: Follow-Up Date:09/18/2018 10:35 AM Discharge Slot: Final Diagnosis: Placement Information Patient Contact Information Contact Name:CHRISTAL Relationship: Address:[address] City:[place] Alternate Phone: State/Zip Code:[place] [address] Email: Financial Information Financial Class:HMO and PPO Plans Primary Plan Desc:[facility] Primary Plan Number:[id number] Secondary Plan Desc: Secondary Plan Number: Assessment Information LACE LACE Length of stay for Answers: 3 days current admission Acuity / Level of Answers: Yes Care: Did the patient have an inpatient admission? Comorbidities - select Answers: Coronary Artery Disease all that apply # of Emergency department Answers: 1-2 visits in the last 6 months Score: 9 Date Signed: 09/18/2018 11:25 AM Electronically Signed By:PRITI Wilson [facility] CM Progress Note CM Note CM Note Notes: Patient admitted for sore throat/neck pain following an ACDF w Dr Saldivar on 09/11. She was found to have a post-op hematoma and is POD #1 washout. She lives with her and is normally independent. PT is recommending home with family support. Case Management available if this changes. Date Signed: 09/16/2018 10:29 AM Electronically Signed By:Maddie Hancock RN Case Management Discharge Plan Note Case Management Discharge Discharge Order Complete? Answers: Yes Patient to Obtain Answers: via Family Medications Transportation Arranged Answers: Family/Friends Discharge Comments Notes: Pt is s/p cervical I&D for a postoperative hematoma. She is discharging home today with family and no CM needs. Date Signed: 09/18/2018 11:27 AM Electronically Signed By:PRITI Wilson Intervention Information
== END 2018-09-18 10:35 | disposition home or self-care (01) | DRG 909 ==
LOC: OBSVTOIN 17:38 → F3N 09-16 00:46
PROVIDERS: ADMIT Neurological Surgery; ATTEND Neurological Surgery
PROC: 0K920ZZ Drainage of Right Neck Muscle, Open Approach (ICD-10-PCS; principal; 2018-09-15 20:30)
DX: M96.841 Postprocedural hematoma of a musculoskeletal structure following other procedure (principal); R13.19 Other dysphagia; Z98.1 Arthrodesis status; I10 Essential (primary) hypertension; I25.10 Atherosclerotic heart disease of native coronary artery without angina pectoris; Z95.5 Presence of coronary angioplasty implant and graft; E78.5 Hyperlipidemia, unspecified; G47.33 Obstructive sleep apnea (adult) (pediatric)
CPT/HCPCS: 92610-GN; 96374; 97161-GP; 97165-GO; J0171; J0330; J0360; J1100; J1200; J2250; J2270; J2405; J2704; J3010